=== PATIENT | female | born 1970 | race Caucasian/White ===

== ENCOUNTER 2021-03-31 10:02 | Emergency (ER) | payer OTHER ==
[~2021-03-31] VITALS: Ht 165.1 cm; Wt 70.0 kg
[2021-03-31 10:12] VITALS: BP 140/81
--- NOTE | 2021-03-31 10:22 | NUR ---
pt postioned to comfort in bed. attached to monitors. vss. thomas. bs [id number]
--- NOTE | 2021-03-31 11:03 | NUR ---
ZEV LEAVING. REQ TO ASK TO BE CALLED WHEN PT D/C [phone]
[2021-03-31 11:22] LABS: BASOPHILS % (AUTO) 1 % (0-1); EOSINOPHILS % (AUTO) 2 % (1-7); LYMPHOCYTES % (AUTO) 29 % (22-44); MEAN CORPUSCULAR HEMOGLOBIN 20.9 pg (27.0-34.8); MEAN CORPUSCULAR HGB CONC 30.8 g/dL (32.4-35.8); MEAN PLATELET VOLUME 8.9 fL (7.4-10.4); MONOCYTES % (AUTO) 6 % (2-9); NEUTROPHILS % (AUTO) 62 % (42-75); PLATELET COUNT 190 x10^3/uL (130-400); RED BLOOD COUNT 5.49 x10^6/uL (3.82-5.3); RED CELL DISTRIBUTION WIDTH 18.5 % (9.6-15.2)
--- NOTE | 2021-03-31 11:30 | NUR ---
PT FOUND PULLING CORDS FROM MONITOR AND HAD THROWN ITEMS STORED IN CABINET AROUND ROOM. THIS RN ASKED PT STOP. PT THEN RAN ACROSS BAILEY AND LOCKED SELF IN BATHROOM STATING "I WANT TO GO HOME!" SECURITY CALLED. PT ESCORTED OUT AFTER BEING EDUCATED ON LEAVING AMA. PT STATED "I'M NOT ON A HOLD, I CAN LEAVE IF I WANT".
[2021-03-31 11:32] LABS: ALANINE AMINOTRANSFERASE 453 U/L (12-78); ALBUMIN 3.3 g/dL (3.4-5.0); ANION GAP 6 mmol/L (5-15); CALCIUM 8.3 mg/dL (8.5-10.1); CHLORIDE 105 mmol/L (98-107); CREATININE 0.63 mg/dL (0.55-1.02)
[2021-03-31 11:34] LABS: ALKALINE PHOSPHATASE 119 U/L (45-117); BILIRUBIN,TOTAL 1.3 mg/dL (0.2-1.0); TOTAL PROTEIN 7.2 g/dL (6.4-8.2)
[2021-03-31 11:45] LABS: <PLATELET ESTIMATE> ADEQUATE; <PLT MORPHOLOGY> NORMAL PLT MORPH; ANISOCYTOSIS 1+; HYPOCHROMIA 1+; MICROCYTOSIS 1+
--- NOTE | 2021-03-31 11:47 | NUR ---
DR. BARRON NOTIFED
[2021-03-31 12:45] LABS: ACETONE, SERUM Negative (Negative)
== END 2021-03-31 11:48 | disposition left against medical advice (07) ==
LOC: ED 10:38
DX: E11.65 Type 2 diabetes mellitus with hyperglycemia (principal); R41.82 Altered mental status, unspecified; R94.5 Abnormal results of liver function studies
CPT/HCPCS: 36415; 80053; 82010; 82962; 85025; 99283